=== PATIENT | male | born 1930 | race Caucasian/White ===

== ENCOUNTER 2017-11-20 18:53 | Inpatient (IN) | payer OTHER, BC ==
[~2017-11-20] VITALS: Ht 177.8 cm; Wt 83.0 kg
[~2017-11-20 18:53] MED LIST: ALLOPURINOL100 MG PO; Ascorbic Acid,Ester- PO; BISOPROLOL FUMA10 MG PO; BYSTOLIC5 MG PO; Bystolic PO; CEFDINIR300 MG PO; CRESTOR10 MG PO; CRESTOR20 MG PO; Dulcolax PO; Ecotrin PO; FLAGYL500 MG PO; Folvite PO; GEMFIBROZIL600 MG PO; HYDROCODON-ACE1 EAC7 PO; LEVOTHYROXINE50 MCG PO; LOSARTAN-HCTZ1 EAC1 PO; Levothroid,Synthroid PO; Lipitor PO; Lopid PO; Miralax, Glycolax PO; Norvasc PO; OMEPRAZOLE20 MG PO; Oscal 500 w/Vitamin PO; PEPTO BISMOL240 ML PO; PROTONIX20 MG PO; Preparation H PR; Protonix PO; SYNTHROID25 MCG PO; Senokot,Sennagen PO; Theragran PO; Vicodin,Norco 5/325 PO; Wellbutrin XL PO; ZOHYDRO ER10 MG PO; Zyloprim PO
[2017-11-20 19:51] LABS: HEMATOCRIT 34.4 % (38.0-50.0); MCH 35.5 PG (29.0-34.0); MCHC 34.9 G/DL (30.0-36.0); MCV 101.8 FL (86-99); PLATELET COUNT 243 K/uL (156-360); RBC DIS.WIDTH-CV 13.9 % (11.8-14.6); RBC DIS.WIDTH-SD 51.9 % (39-53); RED BLOOD COUNT 3.38 M/uL (4.00-5.50); WHITE BLOOD COUNT 7.3 K/uL (4.1-10.2)
[2017-11-20 19:58] LABS: ALBUMIN 4.1 g/dL (3.2-4.8); CHLORIDE 105 mEq/L (99-109); SODIUM 138 mEq/L (136-147)
[2017-11-20 20:00] LABS: GLUCOSE 141 mg/dL (70-99); TOTAL PROTEIN 7.3 g/dL (6.4-8.3)
[2017-11-20 20:02] LABS: TOTAL BILIRUBIN 0.6 mg/dL (0.0-1.0)
[2017-11-20 20:04] LABS: ALKALINE PHOSPHATASE 94 IU/L (3-129); CREATININE 1.4 mg/dL (0.6-1.3); GFR ESTIMATE (CALCULATED) 51 mL/min/ (58.99-99999)
[2017-11-20 20:05] LABS: UREA NITROGEN (BUN) 18 mg/dL (9-23)
[2017-11-20 20:06] LABS: AST (GOT) 13 IU/L (2-34)
[2017-11-20 20:07] LABS: ALT (GPT) 12 IU/L (3-49)
[2017-11-20] MEDS ORDERED: FLOMAX0.4 MG PO (21:02)
[2017-11-20] MEDS ORDERED: WELLBUTRIN XL150 MG PO (21:02)
[2017-11-20] MEDS ORDERED: ERGOCALCIF50000 UNIT PO (21:03)
[2017-11-20] MEDS ORDERED: ARTIFICIAL TEAR1510 BOTH EYES (21:03)
[2017-11-20] MEDS ORDERED: GUMMI BEAR MUL1 EACH PO (21:03)
[2017-11-20 22:48] VITALS: BP 158/75
[2017-11-21 03:26] VITALS: BP 139/79
[2017-11-21 06:03] LABS: BASOPHIL (%) 0.5 % (0-1); EOSINOPHIL (%) 3.4 % (0-5); EOSINOPHIL COUNT 0.2 K/uL (0-0.3); HEMATOCRIT 30.1 % (38.0-50.0); HEMOGLOBIN 10.4 G/DL (12.5-16.6); IMMATURE GRANULOCYTE (%) 0.8 % (0.0-0.7); LYMPHOCYTE COUNT 1.5 K/uL (1.0-2.8); MCHC 34.6 G/DL (30.0-36.0); MCV 101.3 FL (86-99); MONOCYTE COUNT 0.9 K/uL (0-0.8); NEUTROPHIL (%) 59.3 % (45-76); NEUTROPHIL COUNT 3.9 K/uL (1.8-6.4); PLATELET COUNT 205 K/uL (156-360); RBC DIS.WIDTH-SD 51.7 % (39-53); RED BLOOD COUNT 2.97 M/uL (4.00-5.50); WHITE BLOOD COUNT 6.6 K/uL (4.1-10.2)
[2017-11-21 06:26] LABS: CHLORIDE 108 MEQ/L (99-109); CREATININE 1.1 MG/DL (0.6-1.3); GFR ESTIMATE (CALCULATED) > 59 mL/min/ (58.99-99999); POTASSIUM 4.2 MEQ/L (3.7-5.4); SODIUM 140 MEQ/L (136-147); UREA NITROGEN (BUN) 16 mg/dL (9-23)
[2017-11-21 06:27] LABS: GLUCOSE 102 mg/dL (70-99)
[2017-11-21 07:04] VITALS: BP 114/59
[2017-11-21 12:24] VITALS: BP 160/78
[2017-11-21 17:03] VITALS: BP 112/70
[2017-11-21 20:07] VITALS: BP 115/66
[2017-11-21 23:20] VITALS: BP 122/69
[2017-11-22 04:23] VITALS: BP 110/59
[2017-11-22 07:13] LABS: HEMATOCRIT 28.9 % (38.0-50.0); HEMOGLOBIN 10.2 G/DL (12.5-16.6); MCH 35.7 PG (29.0-34.0); MCHC 35.3 G/DL (30.0-36.0); PLATELET COUNT 235 K/uL (156-360); RBC DIS.WIDTH-SD 51.7 % (39-53); RED BLOOD COUNT 2.86 M/uL (4.00-5.50); WHITE BLOOD COUNT 6.2 K/uL (4.1-10.2)
[2017-11-22 07:29] LABS: CHLORIDE 110 MEQ/L (99-109); CREATININE 1.2 MG/DL (0.6-1.3); GFR ESTIMATE (CALCULATED) > 59 mL/min/ (58.99-99999); GLUCOSE 88 mg/dL (70-99); POTASSIUM 4.3 MEQ/L (3.7-5.4); SODIUM 142 MEQ/L (136-147); UREA NITROGEN (BUN) 16 mg/dL (9-23)
[2017-11-22 08:27] VITALS: BP 116/58
[2017-11-22 12:32] VITALS: BP 113/62
[2017-11-22 16:20] VITALS: BP 119/68
[2017-11-22 19:30] VITALS: BP 119/67
[2017-11-23 00:11] VITALS: BP 149/70
[2017-11-23 07:11] VITALS: BP 120/67
[2017-11-23] MEDS ORDERED: DYNAPEN500 MG PO (08:49)
== END 2017-11-23 13:18 | disposition home or self-care (01) | DRG 863 ==
LOC: EME 18:53 → EDOF 20:34 → ENRESERV 20:38 → 2EAST 22:31
PROVIDERS: Hospitalist; Physician Assistant Medical
DX: T81.4XXA Infection following a procedure, initial encounter (principal); L03.116 Cellulitis of left lower limb; N17.9 Acute kidney failure, unspecified; F33.9 Major depressive disorder, recurrent, unspecified; L97.225 Non-pressure chronic ulcer of left calf with muscle involvement without evidence of necrosis; Z85.828 Personal history of other malignant neoplasm of skin; N40.0 Benign prostatic hyperplasia without lower urinary tract symptoms; K21.9 Gastro-esophageal reflux disease without esophagitis; E78.5 Hyperlipidemia, unspecified; E03.9 Hypothyroidism, unspecified; I10 Essential (primary) hypertension; D64.9 Anemia, unspecified; M81.0 Age-related osteoporosis without current pathological fracture; B95.61 Methicillin susceptible Staphylococcus aureus infection as the cause of diseases classified elsewhere; C44.729 Squamous cell carcinoma of skin of left lower limb, including hip; F41.9 Anxiety disorder, unspecified; K44.9 Diaphragmatic hernia without obstruction or gangrene; M10.9 Gout, unspecified; M19.90 Unspecified osteoarthritis, unspecified site; R73.9 Hyperglycemia, unspecified; F10.10 Alcohol abuse, uncomplicated; Y90.9 Presence of alcohol in blood, level not specified; H04.123 Dry eye syndrome of bilateral lacrimal glands; Z98.1 Arthrodesis status; Z87.891 Personal history of nicotine dependence; Z85.89 Personal history of malignant neoplasm of other organs and systems; Z88.1 Allergy status to other antibiotic agents; Z82.49 Family history of ischemic heart disease and other diseases of the circulatory system
CPT/HCPCS: 73700; 80048; 80053; 83605; 85025; 85027; 85651; 87040; 87070; 87075; 87076; 87077; 87147; 87186; 87205; 93971; 99281; 99285; J0690; J0696; J1644; J3370; J7030; J7120